=== PATIENT | female | born 1980 | race Caucasian/White ===

== ENCOUNTER → 2019-12-16 | Outpatient (CLI) | payer MEDICAID | LOC: CARD 12:54 | PROVIDERS: ATTEND Internal Medicine Cardiovascular Disease | DX: R06.02 Shortness of breath (principal); R53.1 Weakness; Z72.0 Tobacco use; E78.1 Pure hyperglyceridemia; R55 Syncope and collapse | CPT/HCPCS: 93225; 93226 ==

== ENCOUNTER → 2019-12-20 | Outpatient (CLI) | payer MEDICAID | LOC: CARD 09:47 | PROVIDERS: ATTEND Internal Medicine Cardiovascular Disease | DX: R06.02 Shortness of breath (principal); R53.1 Weakness; E78.1 Pure hyperglyceridemia; R55 Syncope and collapse; Z72.0 Tobacco use | CPT/HCPCS: 93306; 93351 ==

== ENCOUNTER 2022-06-06 09:05 | Emergency (ER) | payer MEDICAID ==
[~2022-06-06] VITALS: Ht 157.5 cm; Wt 60.7 kg
[2022-06-06 09:54] LABS: BASOPHILS % (AUTO) 0 % (0-10); EOSINOPHILS # (AUTO) 0.3 10^3/uL (0.0-0.3); EOSINOPHILS % (AUTO) 2 % (0-10); HEMATOCRIT 43 % (35-52); HEMOGLOBIN 15.1 g/dL (11.5-16.0); LYMPHOCYTES # (AUTO) 3.4 10^3/uL (1.0-4.0); LYMPHOCYTES % (AUTO) 29 % (12-44); MEAN CORPUSCULAR HEMOGLOBIN 30 pg (25-34); MEAN CORPUSCULAR HGB CONC 35 g/dL (32-36); MEAN CORPUSCULAR VOLUME 85 fL (80-99); MEAN PLATELET VOLUME 8.6 fL (9.0-12.2); MONOCYTES # (AUTO) 0.7 10^3/uL (0.0-1.0); MONOCYTES % (AUTO) 7 % (0-12); NEUTROPHILS % (AUTO) 61 % (42-75); PLATELET COUNT 318 10^3/uL (130-400); WHITE BLOOD COUNT 11.4 10^3/uL (4.3-11.0)
[2022-06-06 09:57] LABS: ALBUMIN 4.6 GM/DL (3.2-4.5)
[2022-06-06 09:58] LABS: CHLORIDE 103 MMOL/L (98-107); POTASSIUM 3.9 MMOL/L (3.6-5.0); SODIUM 140 MMOL/L (135-145)
[2022-06-06 09:59] LABS: CALCIUM 9.8 MG/DL (8.5-10.1)
[2022-06-06 10:00] LABS: GLUCOSE 108 MG/DL (70-105); TOTAL PROTEIN 8.3 GM/DL (6.4-8.2)
[2022-06-06 10:01] LABS: CARBON DIOXIDE 26 MMOL/L (21-32)
[2022-06-06 10:02] LABS: BILIRUBIN,TOTAL 0.7 MG/DL (0.1-1.0)
[2022-06-06 10:03] LABS: ALKALINE PHOSPHATASE 64 U/L (40-136); CREATININE SERUM 0.77 MG/DL (0.60-1.30); GFR ESTIMATED 100
--- NOTE | 2022-06-06 10:03 | ED General ---
General Chief Complaint: Chest Pain Stated Complaint: CHEST PAINS | LIGHT HEADED Nursing Triage Note: PT AMB TO [facility] 3 WITH COMPLAINT OF INTERMITTENT CP FOR FIVE DAYS. STATES 5 DAYS AGO HAD AN EPISODE WHERE SHE WAS HAVING CP AND BECAME FATIGUED AND DIAPHORETIC. TOOK BP AND WAS IN THE 190s. HAD A SIMILAR EPISODE LAST NIGHT, BUT BP WAS IN THE 80s. WENT TO [facility] WALK IN AND WAS SENT TO ER FOR FURTHER EVALUATION. STATES SHE IS CURRENTLY HAVING CP AT TIME OF TRIAGE AND FEELS TIRED, LEGS WEAK. WAS GIVEN 324 [address]SA BY [facility] Source of Information: Patient (KELLI JAY) History of Present Illness Date Seen by Provider: Jun 06, 2022 Time Seen by Provider: 09:25 Initial Comments 42yo F with h/o HTN, heart murmur, h/o elevated cardiac enzymes, and HLD presents to the ED with c/o 9/10 constant, medial, crushing, CP with radiation to L arm that started this morning. This morning, pt states that she experienced an abrupt episode of CP, lightheadedness, vomitingx1, weakness, and palpitations while talking with her daughter, prompting her to come to the ED. Pt states that she experienced one other episode similar to this last night while she was getting out of her car. Pt states that she had to sit on the ground outside of her house for a few minutes due to symptoms. Pt checked her BP last night and it was "in the 70s/40s". Pt notes that for the past 5 days her BP has been "really high and really low" noting the highest BP she documented in this time period being 190/108 and the lowest being the one last night. Pt states that her symptoms are similar to symptoms she experienced prior to being hospitalized for "elevated cardiac enzymes" 5-6 years ago. Pt states that they found a heart murmur but otherwise tests were unremarkable. In ED, pt states resolution of CP after aspirin. BP is 132/81 and ECG is unremarkable. Pt notes that she is still feeling slightly SOB and nauseous in room but otherwise has no complaints. Pt notes that she stopped taking all of her prescribed medications ~1 year ago because she "got depressed and didn't want to take them anymore". Pt was taking lisinopril, HCTZ, levothyroxine, a statin, citalopram, and buspirone. Pt was last seen by a PCP in september prior to moving to [place] and states everything was normal. Pt also notes decreased appetite over the past year that has caused a weight loss of ~60lbs but denies eating less than usual prior to the episodes. Pt denies hematemesis, abd pain, diarrhea, blood in stool, hematuria, fever, chills, sick contact, and hematuria. (KELLI JAY) Allergies and Home Medications Allergies Coded Allergies: codeine (Verified Allergy, Unknown, 06/06/22) promethazine (Verified Allergy, Unknown, 06/06/22) Patient Home Medication List Home Medication List Reviewed: Yes (KELLI JAY) Review of Systems Review of Systems Constitutional: diaphoresis (resolved); No fever; weakness, weight loss (~60lbs in last year) EENTM: No ear discharge, No tearing Respiratory: No cough; short of breath Cardiovascular: chest pain (resolved), palpitations (resolved) Gastrointestinal: No abdominal pain, No constipation, No diarrhea, No hematemesis; nausea, vomiting (x1 this morning) Genitourinary: No dysuria, No hematuria Musculoskeletal: No gout, No joint pain, No joint swelling Skin: No change in color, No change in hair/nails Psychiatric/Neurological: No Symptoms Reported Hematologic/Lymphatic: No Symptoms Reported Immunological/Allergic: no symptoms reported (KELLI JAY) Past Jtyoukh-Ibjcaa-Qgikdt Hx Patient Social History Tobacco Use?: Yes Tobacco type used: Cigarettes Smoking Status: Current Everyday Smoker Use of E-Cig and/or Vaping dev: No Substance use?: No Alcohol Use?: Yes Alcohol Frequency: Once in a while Pt feels they are or have been: No (KELLI JAY) Past Medical History Surgeries: Yes Abdominal (cholescytectomy ), Hysterectomy Respiratory: No Cardiac: Yes Heart Murmur, High Cholesterol, Hypertension Neurological: No Gastrointestinal: No Musculoskeletal: No Endocrine: Yes Hypothyroidsim HEENT: No Cancer: No Psychosocial: Yes Anxiety, Depression Integumentary: No (KELLI JAY) Family Medical History Cancer (grandmother:breast cancer), Diabetes (Mother, sister, grandfather, grandmother), Hypertension (grandfather) (KELLI JAY) Physical Exam Vital Signs Vital Signs - First Documented 06/06/22 09:09 Pulse 78 Resp 16 B/P (MAP) 132/81 (98) Pulse Ox 98 O2 Delivery [facility] Air [facility]) Vital Signs Capillary Refill : Less Than 3 Seconds (KELLI JAY) Height, Weight, BMI Height: '" Weight: lbs. oz. kg; 24.00 BMI Method: General Appearance: No Apparent Distress, WD/WN HEENT: PERRL/EOMI, Moist Mucous Membranes Respiratory: Lungs Clear, Normal Breath Sounds, No Accessory Muscle Use, No Respiratory Distress Cardiovascular: Regular Rate, Rhythm, Diastolic Murmur Gastrointestinal: Non Tender, Soft Back: No CVA Tenderness, No Vertebral Tenderness Extremity: No Calf Tenderness, No Pedal Edema Neurologic/Psychiatric: Alert, Oriented x3 Skin: Normal Color, Warm/Dry (KELLI JAY) Progress/Results/Core Measures Suspected Sepsis SIRS Temperature: Pulse: 78 Respiratory Rate: 16 Blood Pressure 132 /81 Mean: 98 (KELLI JAY) Results/Orders Lab Results Laboratory Tests Test 06/06/22 09:23 Range/Units White Blood Count 11.4 H 4.3-11.0 10^3/uL Red Blood Count 5.06 3.80-5.11 10^6/uL Hemoglobin 15.1 11.5-16.0 g/dL Hematocrit 43 35-52 % Mean Corpuscular Volume 85 80-99 fL Mean Corpuscular Hemoglobin 30 25-34 pg Mean Corpuscular Hemoglobin Concent 35 32-36 g/dL Red Cell Distribution Width 12.6 10.0-14.5 % Platelet Count 318 130-400 10^3/uL Mean Platelet Volume 8.6 L 9.0-12.2 fL Immature Granulocyte % (Auto) 0 % Neutrophils (%) (Auto) 61 42-75 % Lymphocytes (%) (Auto) 29 12-44 % Monocytes (%) (Auto) 7 0-12 % Eosinophils (%) (Auto) 2 0-10 % Basophils (%) (Auto) 0 0-10 % Neutrophils # (Auto) 7.0 1.8-7.8 10^3/uL Lymphocytes # (Auto) 3.4 1.0-4.0 10^3/uL Monocytes # (Auto) 0.7 0.0-1.0 10^3/uL Eosinophils # (Auto) 0.3 0.0-0.3 10^3/uL Basophils # (Auto) 0.0 0.0-0.1 10^3/uL Immature Granulocyte # (Auto) 0.0 0.0-0.1 10^3/uL Sodium Level 140 135-145 MMOL/L Potassium Level 3.9 3.6-5.0 MMOL/L Chloride Level 103 98-107 MMOL/L Carbon Dioxide Level 26 21-32 MMOL/L Anion Gap 11 5-14 MMOL/L Blood Urea Nitrogen 21 H 7-18 MG/DL Creatinine 0.77 0.60-1.30 MG/DL Estimat Glomerular Filtration Rate 100 BUN/Creatinine Ratio 27 Glucose Level 108 H 70-105 MG/DL Calcium Level 9.8 8.5-10.1 MG/DL Corrected Calcium 8.5-10.1 MG/DL Magnesium Level 2.3 1.6-2.4 MG/DL Total Bilirubin 0.7 0.1-1.0 MG/DL Aspartate Amino Transf (AST/SGOT) 24 5-34 U/L Alanine Aminotransferase (ALT/SGPT) 7 0-55 U/L Alkaline Phosphatase 64 40-136 U/L Troponin I < 0.028 <0.028 NG/ML Total Protein 8.3 H 6.4-8.2 GM/DL Albumin 4.6 H 3.2-4.5 GM/DL Thyroid Stimulating Hormone (TSH) 2.67 0.35-4.94 UIU/ML (VERNELL,BILLY L DO) My Orders Orders - VERNELL,BILLY L DO Cbc With Automated Diff (06/06/22 09:48) Magnesium (06/06/22 09:48) Chest 1 View, Ap/Pa Only (06/06/22 09:48) Comprehensive Metabolic Panel (06/06/22 09:48) Ed Iv/Invasive Line Start (06/06/22 09:48) Troponin I [place] (06/06/22 09:48) Thyroid Stimulating Hormone (06/06/22 09:48) (VERNELL,BILLY L DO) Vital Signs/I&O 06/06/22 09:09 Pulse 78 Resp 16 B/P (MAP) 132/81 (98) Pulse Ox 98 O2 Delivery Room Air (VERNELL,BILLY L DO) Vital Signs/I&O Capillary Refill : Less Than 3 Seconds (KELLI JAY) Blood Pressure Mean: 98 ECG Comment Sinus rhythm with a rate of 81 bpm. Normal intervals. Normal axis. Early repolarization type changes in several of the QRS to ST transitions. No STEMI. No ectopy. (BILLY MATT DO) Departure Communication (Admissions) Patient is hemodynamically stable. She is low risk for ACS, minimal risk factors though she is medication noncompliant. She is completely asymptomatic here in the emergency department though she did have 2 similar episodes last night and again this morning. Her EKG is nonischemic. Troponin is negative. I think ACS is low on the differential at this time. It sounds as though she may have had vasovagal episodes however I cannot completely rule out dysrhythmia causing her symptoms. Without I recommended she go to her primary doctor to get a Holter or event monitor. Chest x-ray is negative for any pneumothorax, pneumonia's, cardiac or aortic abnormalities. Electrolytes are normal, she is not anemic. She be discharged home in stable condition with close follow-up. (BILLY MATT DO) Impression Primary Impression: Atypical chest pain Disposition: HOME, SELF-CARE Condition: Stable Departure-Patient Inst. Referrals: NO,LOCAL PHYSICIAN (PCP/Family) Primary Care Physician Patient Instructions: Chest Pain That Is Not Caused by the Heart (DC) Add. Discharge Instructions: I think your symptoms are most likely from a vasovagal episode. I cannot fully rule out an abnormal heart rhythm. With that I recommend you follow-up with your primary doctor for any event or Holter monitor for further evaluation. I am glad you are feeling better at this time and I think it safe for you to go home. Return to the emergency department immediately if you have any severe concerns or if your symptoms change in any way concerning to you. All discharge instructions reviewed with patient and/or family. Voiced understanding. KELLI JAY Jun 06, 2022 10:03 BILLY MATT DO Jun 06, 2022 10:46
[2022-06-06 10:05] LABS: BUN/CREATININE RATIO 27
[2022-06-06 10:06] LABS: ALANINE AMINOTRANSFERASE 7 U/L (0-55); MAGNESIUM 2.3 MG/DL (1.6-2.4)
--- NOTE | 2022-06-06 10:24 | Diagnostic Imaging Report ---
CLINICAL INDICATION: Patient with complains of intermittent chest pain for 5 days. EXAM: Portable chest x-ray upright view. COMPARISON: None. FINDINGS: Lungs/pleura: Lungs are clear. There is no pneumothorax. There is no pleural effusion. Mediastinum: Unremarkable. Pulmonary vasculature: Unremarkable. Heart: Unremarkable. Bones/extrathoracic soft tissue: Unremarkable. IMPRESSION: There is no radiographic evidence of acute cardiopulmonary process. Dictated by: Dictated on workstation # [id number]
[2022-06-06 11:08] VITALS: BP 135/88
== END 2022-06-06 11:12 | disposition home or self-care (01) ==
LOC: EDUNIT# 09:05 → ER 09:07
DX: R07.89 Other chest pain (principal); F17.210 Nicotine dependence, cigarettes, uncomplicated
CPT/HCPCS: 36415; 71045; 80053; 83735; 84443; 84484; 85025; 93005